=== PATIENT | male | born 2005 | race Caucasian/White ===

== ENCOUNTER 2024-02-26 22:27 | Emergency (ER) | payer BC ==
[~2024-02-26] VITALS: Ht 180.3 cm; Wt 90.7 kg
[2024-02-27] MEDS ORDERED: SILVER NITRATE APPLICATOR 1 EA BOX ONE (01:22)
[2024-02-27] MEDS: SILVER NITRATE APPLICATOR 1 EA BOX TP ONE (01:27)
[2024-02-27] MEDS ORDERED: GELATIN SPONGE,ABSORBABLE 1 EA SPONGE TP ONE (02:13)
[2024-02-27] MEDS ORDERED: TRANEXAMIC ACID 1,000 MG/10 ML VIAL ONE (02:15)
[2024-02-27] MEDS: TRANEXAMIC ACID 1,000 MG/10 ML VIAL IR ONE (02:26)
[2024-02-27 02:47] VITALS: BP 135/79; TEMP 97.8; O2SAT 100
== END 2024-02-27 02:40 | disposition home or self-care (01) ==
LOC: ER 22:30
DX: B07.9 Viral wart, unspecified (principal); Z79.899 Other long term (current) drug therapy